=== PATIENT | female | born 1940 ===

== ENCOUNTER 2021-04-18 16:50 | Observation (INO) ==
[2021-04-18 19:14] LABS: Basophils # 0.1 K/mcL (0.0-0.2); Basophils % 0.6 %; Eosinophils # 0.2 K/mcL (0.0-0.6); Eosinophils % 2.7 %; Hematocrit 41.5 % (35.3-44.9); Hemoglobin 13.8 g/dL (11.5-15.4); Immature Granulocytes % 0.4 % (0-4); Lymphocytes # 1.1 K/mcL (0.6-4.6); Lymphocytes % 13.7 %; Mean Corpuscular HGB Conc 33.3 g/dL (31.6-35.5); Mean Corpuscular Hemoglobin 30.5 pg (28.0-33.3); Mean Corpuscular Volume 91.6 fL (83.0-100.0); Mean Platelet Volume 11.6 fL (9.4-12.4); Monocytes % 12.7 %; Neutrophils # 5.7 K/mcL (1.6-8.9); Platelet Count 207 K/mcL (140-400); Red Blood Count 4.53 M/mcL (3.82-4.97); Red Cell Distribution Width 13.1 % (11.5-14.5); Segmented Neutrophils % 69.9 %; White Blood Count 8.2 K/mcL (4.3-11.1)
[2021-04-18 19:19] LABS: INR 1.1; Prothrombin Time 12.4 Seconds (9.4-12.1)
[2021-04-18 19:23] LABS: Activated Partial Thrombo Time 29.9 Seconds (26.0-36.0)
[2021-04-18 19:31] LABS: Troponin I < 0.03 ng/mL (< 0.04)
[2021-04-18 19:53] LABS: Alanine Aminotransferase 18 Units/L (7-52); Albumin 3.9 g/dL (3.5-5.7); Albumin/Globulin Ratio 1.3 (1.1-2.2); Alkaline Phosphatase 48 Units/L (34-104); Aspartate Amino Transferase 24 Units/L (13-39); BUN/Creatinine Ratio 22 (6-26); Bilirubin,Direct 0.2 mg/dL (0.0-0.2); Bilirubin,Total 1.2 mg/dL (0.3-1.0); Blood Urea Nitrogen 20 mg/dL (8-23); Calcium 9.7 mg/dL (8.6-10.3); Carbon Dioxide 28 mEq/L (23-29); Chloride 103 mEq/L (98-107); Ethanol < 10 mg/dL (Less than 10); Globulin 2.9 g/dL (2.4-3.5); Glucose 83 mg/dL (70-105); Osmolality,Calculated 292 (280-300); Sodium 140 mEq/L (136-145); Total Protein 6.8 g/dL (6.4-8.9); eGFR For African Americans > 60 (> 60); eGFR For Non-African Americans 58 (> 60)
[2021-04-18] MEDS ORDERED: Naloxone 0.4 MG/ML INJ IVP PRN (20:33)
[2021-04-18] MEDS ORDERED: *HR* LORazepam 1 MG TABLET PO PRN (20:33)
[2021-04-18] MEDS: cephALEXin 500 MG CAPSULE PO SCH (22:47)
[2021-04-19] MEDS: *HR* LORazepam 2 MG/ML VIAL IVP PRN ×2 (04:33→17:16)
[2021-04-19 05:57] LABS: Amphetamine Screen,Urine Negative ng/mL (Cutoff=1000); Barbiturate Screen,Urine Negative ng/mL (Cutoff=200); Benzodiazepines Screen,Urine Negative ng/mL (Cutoff=200); Cannabinoid Screen,Urine Negative ng/mL (Cutoff = 50); Cocaine Screen,Urine Negative ng/mL (Cutoff= 300); Opiate Screen,Urine Negative ng/mL (Cutoff=300); Phencyclidine Screen,Urine Negative ng/mL (Cutoff=25)
[2021-04-19 06:18] LABS: Bilirubin,Urine Negative (Negative); Blood,Urine Large (Negative); Clarity,Urine Clear (Clear); Color,Urine Yellow (Yellow); Glucose,Urine (UA) Normal (Normal); Ketones,Urine Negative (Negative); Leukocyte Esterase,Urine Large (Negative); Nitrite,Urine Positive (Negative); Protein,Urine 30 mg/dL (Neg-Trace); Urobilinogen,Urine Normal (Normal)
[2021-04-19 08:22] LABS: Bacteria,Urine Moderate per hpf (None-Few); RBC,Urine 30-50 per hpf (0-3); WBC,Urine TNTC per hpf (0-3)
[2021-04-19] MEDS ORDERED: *HR* Enoxaparin 30 MG/0.3 ML SYRINGE SQ SCH (10:45)
[2021-04-19] MEDS: cephALEXin 500 MG CAPSULE PO SCH (10:51)
[2021-04-19] MEDS: cefTRIAXone 1,000 MG in Water for inj. (sterile) 10 ML IVP SCH (12:26)
[2021-04-19] MEDS ORDERED: *HR* LORazepam 2 MG/ML VIAL IVP SCH (21:00)
[2021-04-19] MEDS: QUEtiapine Fumarate 25 MG TABLET PO SCH (21:48)
[2021-04-20] MEDS: *HR* Enoxaparin 40 MG/0.4 ML SYRINGE SQ SCH (04:30)
[2021-04-20] MEDS ORDERED: *HR* LORazepam 2 MG/ML VIAL IVP PRN (07:43)
[2021-04-20] MEDS: cefTRIAXone 1,000 MG in Water for inj. (sterile) 10 ML IVP SCH (07:49)
[2021-04-20] MEDS: *HR* LORazepam 2 MG/ML VIAL IVP PRN (07:51)
[2021-04-20 10:42] LABS: Adenovirus Not Detected (Not Detect); Bordetella Pertussis Not Detected (Not Detect); Chlamydophila pneumoniae Not Detected (Not Detect); Coronavirus 229E Not Detected (Not Detect); Coronavirus HKU1 Not Detected (Not Detect); Coronavirus NL63 Not Detected (Not Detect); Coronavirus OC43 Not Detected (Not Detect); Human Metapneumovirus Not Detected (Not Detect); Human Rhinovirus/Enterovirus Not Detected (Not Detect); Influenza A Subtype 2009 H1 Not Detected (Not Detect); Influenza B Not Detected (Not Detect); Mycoplasma pneumoniae Not Detected (Not Detect); Parainfluenza Virus 1 Not Detected (Not Detect); Parainfluenza Virus 2 Not Detected (Not Detect); Parainfluenza Virus 3 Not Detected (Not Detect); Parainfluenza Virus 4 Not Detected (Not Detect); Respiratory Syncytial Virus Not Detected (Not Detect); SARS-CoV-2 Not Detected (Not Detect)
[2021-04-20] MEDS: Haloperidol Oral Conc 10 MG/5 ML UDC PO PRN ×2 (11:10→19:07)
[2021-04-20] MEDS: *HR* LORazepam Oral Conc 2 MG/ML SL PRN (13:14)
[2021-04-20] MEDS: QUEtiapine Fumarate 25 MG TABLET PO SCH (21:19)
[2021-04-21] MEDS: *HR* Enoxaparin 40 MG/0.4 ML SYRINGE SQ SCH (06:47)
[2021-04-21] MEDS ORDERED: CefTRIAXone 1,000 MG VIAL IM ONE (10:33)
[2021-04-21] MEDS: cefTRIAXone 1,000 MG in Water for inj. (sterile) 10 ML IVP SCH (11:54)
[2021-04-21 11:56] VITALS: BP 120/76
[2021-04-21] MEDS: *HR* LORazepam Oral Conc 2 MG/ML SL PRN (13:33)
== END 2021-04-21 14:00 | disposition home or self-care (01) ==
LOC: INPGRE 16:50 → EMEROOGRE 16:50 → INPGRE 21:26
PROVIDERS: ADMIT Family Medicine; ATTEND Family Medicine